=== PATIENT | female | born 1980 | race African-American/Black ===

== ENCOUNTER 2018-09-15 09:44 | Emergency (ER) | payer BC ==
[2018-09-15 10:08] VITALS: BP 146/101
--- NOTE | 2018-09-15 10:24 | ER Document Report ---
ED General - General Chief Complaint: High Blood Pressure Stated Complaint: BLOOD PRESSURE ISSUES Time Seen by Provider: 09/15/18 10:06 Mode of Arrival: Ambulatory Information source: Patient TRAVEL OUTSIDE OF THE [place] IN LAST 30 DAYS: No - HPI Notes: 37-year-old female history of hypertension was just started on hydrochlorothiazide 12.5 mg yesterday and clonidine 0.1 mg as needed presents with report of having elevated blood pressure at home 205/135 and previous blood pressure 170/110. The patient came in for further evaluation. She did take 2 of the clonidine tablets and arrives with a 159/105 blood pressure repeat blood pressure was 147/101. The patient denies any headache, chest pain, fever, chills, numbness, paresthesia, focal weakness. The patient admits to some stress related to being concerned about her blood pressure. No neck stiffness. The patient has had blood work drawn at her regular practitioner's office on several occasions commensurate to being started on these medications. - Related Data Allergies/Adverse Reactions: No Known Allergies Allergy (Verified 09/15/18 09:50) Past Medical History - General Information source: Patient - Social History Smoking Status: Never Smoker Frequency of alcohol use: None Drug Abuse: None Lives with: Family Family History: Reviewed & Not Pertinent Patient has suicidal ideation: No Patient has homicidal ideation: No - Past Medical History Cardiac Medical History: Reports: Hx Hypertension Renal/ Medical History: Denies: Hx Peritoneal Dialysis Review of Systems - Review of Systems -: Yes All other systems reviewed and negative Physical Exam - Vital signs Vitals: Temp Pulse Resp BP Pulse Ox 98.0 F 60 20 159/105 H 100 09/15/18 09:52 09/15/18 09:52 09/15/18 09:52 09/15/18 09:52 09/15/18 09:52 - Notes Notes: PHYSICAL EXAMINATION: GENERAL: Well-appearing, well-nourished and in no acute distress. HEAD: Atraumatic, normocephalic. EYES: Pupils equal round and reactive to light, extraocular movements intact, conjunctiva are normal. ENT: Nares patent, oropharynx clear without exudates. Moist mucous membranes. NECK: Normal range of motion, supple without lymphadenopathy LUNGS: Breath sounds clear to auscultation bilaterally and equal. No wheezes rales or rhonchi. HEART: Regular rate and rhythm without murmurs ABDOMEN: Soft, nontender, nondistended abdomen. No guarding, no rebound. No masses appreciated. Female : deferred Musculoskeletal: Normal range of motion, no pitting or edema. No cyanosis. NEUROLOGICAL: Cranial nerves grossly intact. Normal speech, normal gait. Normal sensory, motor exams. No cerebellar ataxia. PSYCH: Normal mood, normal affect. SKIN: Warm, Dry, normal turgor, no rashes or lesions noted. Course - Re-evaluation Re-evalutation: 09/15/18 10:24 Repeat blood pressure was appropriate. She was counseled about the need to take medications regularly and follow-up with regular practitioner. No clinical suggestion for endorgan damage or other acute process. Patient has been getting her blood pressure checked - Vital Signs Vital signs: Temp Pulse Resp BP Pulse Ox 98.0 F 60 20 159/105 H 100 09/15/18 09:52 09/15/18 09:52 09/15/18 09:52 09/15/18 09:52 09/15/18 09:52 Discharge - Discharge Clinical Impression: Hypertension Qualifiers: Hypertension type: essential hypertension Qualified Code(s): I10 - Essential (primary) hypertension Condition: Stable Disposition: HOME, SELF-CARE Instructions: Hydrochlorothiazide ([facility]), High Blood Pressure ([facility]) Additional Instructions: Check and record your blood pressures regularly. Forms: Return to Work
== END 2018-09-15 10:27 | disposition home or self-care (01) ==
LOC: ER 09:44
DX: I10 Essential (primary) hypertension (principal)
CPT/HCPCS: 99283